=== PATIENT | female | born 1995 | race Caucasian/White ===

== ENCOUNTER 2020-10-25 18:29 | Emergency (ER) | payer SELFPAY ==
[~2020-10-25] VITALS: Ht 160 cm; Wt 123.3 kg
[2020-10-25] MEDS ORDERED: ACETAMINOPHEN 325 MG TABLET PO ONE (19:15)
[2020-10-25 19:50] LABS: BACTERIA,URINE 0 /HPF (0-FEW); BILIRUBIN,URINE NEG (NEG); CLARITY,URINE CLEAR; COLOR,URINE YELLOW; GLUCOSE,URINE NEG (NEG); NITRITE,URINE NEG (NEG); RBC,URINE OCC /HPF (0-2); SQUAMOUS EPITHELIAL CELL,UR MANY /LPF; UROBILINOGEN,URINE 0.2 mg/dL (0.2 mg/dL); WBC,URINE OCC /HPF (0-4)
[2020-10-25 20:19] LABS: BASO # 0.1 x10^3/uL (0.0-0.2); BASO % 1 % (0-3); EOS # 0.2 x10^3/uL (0.0-0.7); EOS % 2 % (0-3); HEMATOCRIT 41.7 % (36.0-47.0); HEMOGLOBIN 13.9 g/dL (12.0-15.5); LYMPH # 2.9 x10^3/uL (1.0-4.8); LYMPH % 21 % (24-48); MEAN CORPUSCULAR HEMOGLOBIN 30 pg (25-35); MEAN CORPUSCULAR HGB CONC 33 g/dL (31-37); MEAN CORPUSCULAR VOLUME 89 fL (79-100); MONO # 0.5 x10^3/uL (0.0-1.1); MONO % 4 % (0-9); NEUT # 10.3 x10^3uL (1.8-7.7); NEUT % 73 % (31-73); PLATELET COUNT 305 x10^3/uL (140-400); RED CELL DISTRIBUTION WIDTH 13.5 % (11.5-14.5); WHITE BLOOD COUNT 14.1 x10^3/uL (4.0-11.0)
[2020-10-25 20:33] LABS: CALCIUM 8.6 mg/dL (8.5-10.1); CREATININE 0.8 mg/dL (0.6-1.0); GFR 86.7; POTASSIUM 4.1 mmol/L (3.5-5.1)
[2020-10-25 20:39] LABS: ALBUMIN 3.5 g/dL (3.4-5.0); ALBUMIN/GLOBULIN RATIO 0.9 (1.0-1.7); TOTAL BILIRUBIN 0.4 mg/dL (0.2-1.0); TOTAL PROTEIN 7.3 g/dL (6.4-8.2)
--- NOTE | 2020-10-25 20:43 | PHYS DOC ---
Past History Past Surgical History: Other Additional Past Surgical Histo: ECTOPIC PREG LAST YEAR. (STACY AUGUSTIN APRN) Alcohol Use: Occasionally (STACY AUGUSTIN APRN) General Adult EDM: Chief Complaint: ABDOMINAL PAIN IN HPI: HPI: Patient is a 25-year-old female who presents with left-sided pelvic pain. Patient states that she had a ectopic 1 year ago and she is concerned that is what is happening again.. Patient states that her pain feels similar to last time. Patient states that she started having pain last night. Patient's last menstrual period was 09/28. Patient is G2, P0. Denies spotting. (STACY AUGUSTIN APRN) Review of Systems: Review of Systems: Constitutional: Denies fever or chills Eyes: Denies change in visual acuity HENT: Denies nasal congestion or sore throat Respiratory: Denies cough or shortness of breath Cardiovascular: Denies chest pain or edema GI: Reports left-sided abdominal pain. Denies nausea, vomiting, bloody stools or diarrhea : Denies dysuria Musculoskeletal: Denies back pain or joint pain Integument: Denies rash Neurologic: Denies headache, focal weakness or sensory changes Endocrine: Denies polyuria or polydipsia Lymphatic: Denies swollen glands Psychiatric: Denies depression or anxiety (STACY AUGUSTIN APRN) Current Medications: Current Meds: Current Medications Medications (Trade) Dose Ordered Sig/Cami Start Time Stop Time Status Last Admin Dose Admin Acetaminophen (Tylenol) 650 mg 1X ONCE 10/25/20 19:15 10/25/20 19:19 DC 10/25/20 19:24 650 MG (STACY AUGUSTIN APRN) Allergies: Allergies: Allergies Coded Allergies Type Severity Reaction Last Updated Verified No Known Drug Allergies 10/25/20 No (STACY AUGUSTIN APRN) Physical Exam: PE: Constitutional: Well developed, well nourished, no acute distress, non-toxic appearance. [] HENT: Normocephalic, atraumatic, bilateral external ears normal, oropharynx moist, no oral exudates, nose normal. [] Eyes: PERRLA, EOMI, conjunctiva normal, no discharge. [] Neck: Normal range of motion, no tenderness, supple, no stridor. [] Cardiovascular:Heart rate regular rhythm, no murmur [] Lungs & Thorax: Bilateral breath sounds clear to auscultation [] Abdomen: Bowel sounds normal, soft, left-sided tenderness Skin: Warm, dry, no erythema, no rash. [] Back: No tenderness, no CVA tenderness. [] Extremities: No tenderness, no cyanosis, no clubbing, ROM intact, no edema. [] Neurologic: Alert and oriented X 3, normal motor function, normal sensory function, no focal deficits noted. [] Psychologic: Affect normal, judgement normal, mood normal. [] (STACY AUGUSTIN APRN) Current Patient Data: Labs: Laboratory Tests Test 10/25/20 18:43 10/25/20 19:08 10/25/20 19:28 Urine Collection Type Unknown Urine Color Yellow Urine Clarity Clear Urine pH 6.0 Urine Specific [place] 1.020 Urine Protein Neg (NEG-TRACE) Urine Glucose (UA) Neg mg/dL (NEG) Urine Ketones (Stick) Trace mg/dL (NEG) Urine Blood Neg (NEG) Urine Nitrite Neg (NEG) Urine Bilirubin Neg (NEG) Urine Urobilinogen Dipstick 0.2 mg/dL (0.2 mg/dL) Urine Leukocyte Esterase Neg (NEG) Urine RBC Occ /HPF (0-2) Urine WBC Occ /HPF (0-4) Urine Squamous Epithelial Cells Many /LPF Urine Bacteria 0 /HPF (0-FEW) POC Urine HCG, Qualitative hcg positive (Negative) White Blood Count 14.1 x10^3/uL (4.0-11.0) H Red Blood Count 4.70 x10^6/uL (3.50-5.40) Hemoglobin 13.9 g/dL (12.0-15.5) Hematocrit 41.7 % (36.0-47.0) Mean Corpuscular Volume 89 fL (79-100) Mean Corpuscular Hemoglobin 30 pg (25-35) Mean Corpuscular Hemoglobin Concent 33 g/dL (31-37) Red Cell Distribution Width 13.5 % (11.5-14.5) Platelet Count 305 x10^3/uL (140-400) Neutrophils (%) (Auto) 73 % (31-73) Lymphocytes (%) (Auto) 21 % (24-48) L Monocytes (%) (Auto) 4 % (0-9) Eosinophils (%) (Auto) 2 % (0-3) Basophils (%) (Auto) 1 % (0-3) Neutrophils # (Auto) 10.3 x10^3uL (1.8-7.7) H Lymphocytes # (Auto) 2.9 x10^3/uL (1.0-4.8) Monocytes # (Auto) 0.5 x10^3/uL (0.0-1.1) Eosinophils # (Auto) 0.2 x10^3/uL (0.0-0.7) Basophils # (Auto) 0.1 x10^3/uL (0.0-0.2) Sodium Level 138 mmol/L (136-145) Potassium Level 4.1 mmol/L (3.5-5.1) Chloride Level 103 mmol/L (98-107) Carbon Dioxide Level 28 mmol/L (21-32) Anion Gap 7 (6-14) Blood Urea Nitrogen 12 mg/dL (7-20) Creatinine 0.8 mg/dL (0.6-1.0) Estimated GFR (Cockcroft-Gault) 86.7 BUN/Creatinine Ratio 15 (6-20) Glucose Level 98 mg/dL (70-99) Calcium Level 8.6 mg/dL (8.5-10.1) Total Bilirubin Pending Aspartate Amino Transferase (AST) Pending Alanine Aminotransferase (ALT) Pending Alkaline Phosphatase Pending Total Protein Pending Albumin Pending Albumin/Globulin Ratio Pending Vital Signs: Vital Signs Date Time Temp Pulse Resp B/P (MAP) Pulse Ox O2 Delivery O2 Flow Rate FiO2 10/25/20 19:12 98.2 87 16 165/93 98 Room Air (STACY AUGUSTIN APRN) EKG: EKG: [] (STACY AUGUSTIN SYSTEM ARCHITECT) Radiology/Procedures: Radiology/Procedures: []EXAM: ULTRASOUND PELVIS INDICATION: Reason: LEFT SIDED ABD PAIN / Spl. Instructions: / History: . COMPARISON: None available. TECHNIQUE: Transvaginal sonography was performed. FINDINGS: Uterus measures 6.2 x 4.5 x 3.3 cm. Endometrium measures 1.4 cm in thickness. Right ovary measures 2.2 x 1.8 x 1.7 cm. Left ovary measures 4.9 x 1.7 x 1.4 cm. Vascular flow identified in the ovaries bilaterally. Small amount of simple appearing free fluid noted in the cul-de-sac. IMPRESSION: 1. No pole, yolk sac or gestational sac identified. Intrauterine is not confirmed. Differential considerations include early IUP, failed IUP or nonvisualized ectopic . Recommend correlation with serial beta-hCG measurements and short-term follow-up ultrasound. 2. Small amount of free fluid in the pelvis which is nonspecific may be physiologic. Electronically signed by: Mario Ralph MD (10/25/2020 9:24 PM) [facility] (STACY AUGUSTIN APRN) Heart Score: C/O Chest Pain: No Risk Factors: Risk Factors: DM, Current or recent (<one month) smoker, HTN, HLP, family history of CAD, obesity. Risk Scores: Score 0 - 3: 2.5% MACE over next 6 weeks - Discharge Home Score 4 - 6: 20.3% MACE over next 6 weeks - Admit for Clinical Observation Score 7 - 10: 72.7% MACE over next 6 weeks - Early Invasive Strategies (STACY AUGUSTIN APRN) Course & Med Decision Making: Course & Med Decision Making Pertinent Labs and Imaging studies reviewed. (See chart for details) [] 25-year-old female presents with left-sided pelvic pain. Patient took 4 test this morning which were all positive. Patient states that she had an ectopic 1 year ago and is concerned that is what is happening now. Patient states that the pain feels similar. Patient's last menstrual period was 09/28. Patient is G2, P0. Patient had to have fallopian tube removed on the right last time. Prescribed Tylenol for discomfort urine positive. Patient's white count was 14.1. Patient states her white count is always elevated. (STACY AUGUSTIN APRN) Course & Med Decision Making Did not see or evaluate patient. Agree with SQL TECH's work-up and disposition per note. (SUPA SCHULER MD) Dragon Disclaimer: Dragon Disclaimer: This electronic medical record was generated, in whole or in part, using a voice recognition dictation system. (STACY AUGUSTIN APRN) Departure Departure: Impression: Primary Impression: with abdominal pain of left lower quadrant, antepartum Disposition: HOME / SELF CARE / HOMELESS Condition: STABLE Referrals: MICHAEL LYONS (PCP) Patient Instructions: Abdominal Pain During , [id number] Additional Instructions: You are seen in the emergency room for left lower abdominal pain. Your ultrasound is most likely too early to visualize a baby. Please call tomorrow to make a follow-up with OB. You need to return in 48 hours for repeat beta- hCG. Or your [facility] MACH[facility]PERATOR office can draw labs as well. Return emergency room if you have an increase in pain, spotting. EMERGENCY DEPARTMENT GENERAL DISCHARGE INSTRUCTIONS Thank you for coming to [facility] (ED) today and trusting us with you care. We trust that you had a positivie experience in our Emergency Department. If you wish to speak to the department management, you may call the director at [phone]. YOUR FOLLOW UP INSTRUCTIONS ARE FOLLOWS: 1. Do you have a private Doctor? If you do not have a private doctor, please ask for a resource list of physicians or clinics that may be able to assist you with follow up care. 2. The Emergency Physician has interpreted your x-rays. The X-Ray specialist will also review them. If there is a change in the findings, you will be notified in 48 hours when at all possible. 3. A lab test or culture has been done, your results will be reviewed and you will be notified if you need a change in treatment. ADDITIONAL INSTRUCTIONS AND INFORMATION: 1. Your care today has been supervised by a physician who is specially trained in emergency care. Many problems require more than one evaluation for a complete diagnosis and treatment. We recommend that you schedule your follow up appointment as recommended to ensure complete treatment of you illness or injury. If you are unable to obtain follow up care and continue to have a problem, or if your condition worsens, we recommend that you return to the ED. 2. We are not able to safely determine your condition over the phone nor are we able to give sound medical advice over the phone. For these safety reasons, if you call for medical advice we will ask you to come to the ED for further evaluation. 3. If you have any questions regarding these discharge instructions please call the ED at [phone]. SAFETY INFORMATION: In the interest of safety, wellness, and injury prevention; we encourage you to wear your sealbelt, if you smoke; quite smoking, and we encourage family to use a protective helmet for bicycling and other sporting events that present an increased risk for head injury. IF YOUR SYMPTOMS WORSEN OR NEW SYMPTOMS DEVELOP, OR YOU HAVE CONCERNS ABOUT YOUR CONDITION; OR IF YOUR CONDITION WORSENS WHILE YOU ARE WAITING FOR YOUR FOLLOW UP APPOINTMENT; EITHER CONTACT YOUR PRIMARY CARE DOCTOR, THE PHYSICIAN WHOSE NAME AND NUMBER YOU WERE GIVEN, OR RETURN TO THE ED IMMEDIATELY. STACY AUGUSTIN APRN Oct 25, 2020 20:43 SUPA SCHULER MD Oct 25, 2020 23:37
--- NOTE | 2020-10-25 21:26 | RAD ---
EXAM: ULTRASOUND PELVIS INDICATION: Reason: LEFT SIDED ABD PAIN / Spl. Instructions: / History: . COMPARISON: None available. TECHNIQUE: Transvaginal sonography was performed. FINDINGS: Uterus measures 6.2 x 4.5 x 3.3 cm. Endometrium measures 1.4 cm in thickness. Right ovary measures 2.2 x 1.8 x 1.7 cm. Left ovary measures 4.9 x 1.7 x 1.4 cm. Vascular flow identified in the ovaries bilaterally. Small amount of simple appearing free fluid noted in the cul-de-sac. IMPRESSION: 1. No pole, yolk sac or gestational sac identified. Intrauterine is not confirmed. D ifferential considerations include early IUP, failed IUP or nonvisualized ectopic . Recommen d correlation with serial beta-hCG measurements and short-term follow-up ultrasound. 2. Small amount of free fluid in the pelvis which is nonspecific may be physiologic. Electronically signed by: Mario Ralph MD (10/25/2020 9:24 PM) [facility]
[2020-10-25 22:22] VITALS: BP 148/70
== END 2020-10-25 22:23 | disposition home or self-care (01) ==
LOC: ER 18:29
DX: O26.891 Other specified pregnancy related conditions, first trimester (principal); R10.32 Left lower quadrant pain; Z3A.01 Less than 8 weeks gestation of pregnancy
CPT/HCPCS: 36415; 76830; 80053; 81001; 81025; 84702; 85025; 99284-25